=== PATIENT | male | born 1955 | race Hispanic/Latino ===

== ENCOUNTER 2018-06-11 20:15 | Emergency (ER) | payer OTHER ==
[~2018-06-11] VITALS: Ht 167.6 cm; Wt 67.1 kg
[~2018-06-11 20:15] MED LIST: MOBIC15 M1 PO
[2018-06-11 20:57] LABS: ABSOLUTE BASOPHIL COUNT 0.1 /CUMM (0.0-0.2); ABSOLUTE EOSINOPHIL COUNT 0.1 /CUMM (0.0-0.7); ABSOLUTE GRANULOCYTE CT 7.2 /CUMM (1.4-6.5); ABSOLUTE LYMPH COUNT 2.3 /CUMM (1.2-3.4); ABSOLUTE MONOCYTE COUNT 1.1 /CUMM (0.10-0.60); BASOPHIL % 0.6 % (0.0-2.0); EOSINOPHIL % 0.6 % (0-5); HEMATOCRIT 45.7 % (42-52); MEAN CORPUSCULAR HGB 35.7 PG (27.0-31.0); MEAN CORPUSCULAR HGB CONC 34.7 G/DL (33.0-37.0); MEAN PLATELET VOLUME 8.7 FL (7.4-10.4); PLATELET COUNT 184 /CUMM (130-400); RED BLOOD CELL CT 4.44 /CUMM (4.70-6.10); WHITE BLOOD CELL COUNT 10.7 /CUMM (4.8-10.8)
--- NOTE | 2018-06-11 21:06 | ED GI/GU/ABDOMINAL COMPLAINT ---
History of Present Illness General Chief Complaint: Abdominal Pain/Flank Pain Stated Complaint: PER ,"REALLY SICK STOMACH GOT BIG" Vital Signs & Intake/Output Vital Signs & Intake/Output Vital Signs Date Time Temp Pulse Resp B/P B/P Pulse O2 O2 Flow FiO2 Mean Ox Delivery Rate 06/11 2038 98.0 128 16 168/108 98 Room Air Allergies Coded Allergies: No Known Allergies (09/05/16) Reconcile Medications Meloxicam (Mobic) 15 MG TABLET 1 TAB PO DAILY PRN PAIN Triage Note: 63M WITH A FEW DAYS OF ABDOMINAL DISTENTION AND TODAY DEVELOPED DIARRHEA. +FLATULENCE, DENIES ABD SURGERY HX. AFEBRILE. DENIES CP/SOB/PALP. BP HIGH AND TACHY IN TRIAGE. DOES NOT TAKE MEDS FOR HTN Past History Travel History Traveled to [place] past 21 day No Psychosocial History What is your primary language Palestinian Tobacco Use: Never used Progress Plan of Care: Orders Procedure Date/time Status TROPONIN LEVEL 06/11 2016 Active LIPASE 06/11 2016 Active HEPATIC FUNCTION PANEL 06/11 2016 Active CBC WITHOUT DIFFERENTIAL 06/11 2016 Complete BASIC METABOLIC PANEL 06/11 2016 Active AMYLASE 06/11 2016 Active EKG 06/11 2016 Active Laboratory Tests 06/11/18 2044: Anion Gap 19 H, Estimated GFR > 60, BUN/Creatinine Ratio 8.8, Glucose 168 H, Calcium 8.5, Total Bilirubin 2.4 H, Direct Bilirubin 1.4 H, AST 159 H, ALT 50 , Alkaline Phosphatase 247 H, Troponin I Pending, Total Protein 7.5, Albumin 3.7, Amylase 65, Lipase 106, CBC w Diff NO MAN DIFF REQ, RBC 4.44 L, MCV 103.0 H, MCH 35.7 H, MCHC 34.7, RDW 13.0, MPV 8.7, Gran % 67.0, Lymphocytes % 21.1, Monocytes % 10.7 H, Eosinophils % 0.6, Basophils % 0.6, Absolute Granulocytes 7.2 H, Absolute Lymphocytes 2.3, Absolute Monocytes 1.1 H, Absolute Eosinophils 0.1, Absolute Basophils 0.1 Departure Departure Condition: Stable Referrals: Skip WALLACE,Dakota Rowe (PCP/Family) Departure Forms: Customer Survey General Discharge Information
--- NOTE | 2018-06-11 21:19 | ED GI/GU/ABDOMINAL COMPLAINT ---
See Addendum History of Present Illness General Chief Complaint: Abdominal Pain/Flank Pain Stated Complaint: PER ,"REALLY SICK STOMACH GOT BIG" Source: patient Exam Limitations: no limitations Vital Signs & Intake/Output Vital Signs & Intake/Output Vital Signs Date Time Temp Pulse Resp B/P B/P Pulse O2 O2 Flow FiO2 Mean Ox Delivery Rate 06/11 2307 98.1 125 18 150/82 95 Room Air 06/11 2038 98.0 128 16 168/108 98 Room Air ED Intake and Output 06/12 0000 06/11 1200 Intake Total 0 Output Total Balance 0 Intake, Oral 0 Patient 148 lb Weight Allergies Coded Allergies: No Known Allergies (09/05/16) Reconcile Medications Meloxicam (Mobic) 15 MG TABLET 1 TAB PO DAILY PRN PAIN Triage Note: 63M WITH A FEW DAYS OF ABDOMINAL DISTENTION AND TODAY DEVELOPED DIARRHEA. +FLATULENCE, DENIES ABD SURGERY HX. AFEBRILE. DENIES CP/SOB/PALP. BP HIGH AND TACHY IN TRIAGE. DOES NOT TAKE MEDS FOR HTN Triage Nurses Notes Reviewed? yes Duration: constant Timing: recent history Severity Numbers: 5 Location: generalized abdomen Radiation: no radiation HPI: Patient is a 63-year-old male with a past medical history of alcohol dependency who presents emergency room with a 3 day history of generalized abdominal distention decreased by mouth intake Patient can tolerate by mouth with no nausea or vomiting Patient had loose watery diarrhea production today Patient denies any fever chills chest pain shortness breath back pain dysuria hematuria No blood no melena noted from bowel production Denies any abdominal pain patient is able to pass gas Last alcohol beverage was this morning 2 shots (David Sanchez) Past History Travel History Traveled to [place] past 21 day No Medical History Any Pertinent Medical History? see below for history Psychiatric: alcohol dependence Surgical History Surgical History: non-contributory Psychosocial History What is your primary language Mongolian Tobacco Use: Never used Family History Hx Contributory? No (David Sanchez) Review of Systems Review of Systems Constitutional: Reports: no symptoms. EENTM: Reports: no symptoms. Respiratory: Reports: no symptoms. Cardiovascular: Reports: no symptoms. GI: Reports: see HPI, bloating. Genitourinary: Reports: no symptoms. Musculoskeletal: Reports: no symptoms. Skin: Reports: no symptoms. Neurological/Psychological: Reports: no symptoms. Hematologic/Endocrine: Reports: no symptoms. Immunologic/Allergic: Reports: no symptoms. All Other Systems: Reviewed and Negative (David Sanchez) Physical Exam Physical Exam General Appearance: no apparent distress, alert, awake, comfortable Head: atraumatic Eyes: Bilateral: normal appearance. Ears, Nose, Throat, Mouth: moist mucous membrane Neck: normal inspection Respiratory: no respiratory distress Cardiovascular: regular rate/rhythm Gastrointestinal: normal bowel sounds, non-tender, distention Extremities: normal range of motion Neurologic/Psych: no motor/sensory deficits, awake, alert Skin: intact, normal color, warm/dry Core Measures ACS in differential dx? No Sepsis Present: No Sepsis Focused Exam Completed? No (David Sanchez) Progress Differential Diagnosis: AAA, AMI, appendicitis, biliary colic, bowel obstruction , colon cancer, cholecystitis, diverticulitis, epididymitis, esophageal varices, gastritis, hepatitis, hernia, hemorrhoids, ischemic bowel, inflamm bowel dis, orchitis, pancreatitis, prostatitis, peptic ulcer, PUD/GERD, perforated viscous, pyelonephritis, SBO, STD, testicular torsion, ureterolithiasis, urinary retention, urethritis, UTI/pyelo Plan of Care: Orders Procedure Date/time Status Add-on Test (ER Only) 06/11 2125 Active PARTIAL THROMBOPLASTIN TIME 06/11 2044 Complete PROTHROMBIN TIME 06/11 2044 Complete ETHANOL 06/11 2044 Complete TROPONIN LEVEL 06/11 2016 Complete LIPASE 06/11 2016 Complete HEPATIC FUNCTION PANEL 06/11 2016 Complete CBC WITHOUT DIFFERENTIAL 06/11 2016 Complete BASIC METABOLIC PANEL 06/11 2016 Complete AMYLASE 06/11 2016 Complete EKG 06/11 2016 Active Laboratory Tests 06/11/18 2044: Anion Gap 19 H, Estimated GFR > 60, BUN/Creatinine Ratio 8.8, Glucose 168 H, Calcium 8.5, Total Bilirubin 2.4 H, Direct Bilirubin 1.4 H, AST 159 H, ALT 50 , Alkaline Phosphatase 247 H, Troponin I < 0.01, Total Protein 7.5, Albumin 3.7 , Amylase 65, Lipase 106, PT 13.9 H, INR 1.27 H, APTT 35, CBC w Diff NO MAN DIFF REQ, RBC 4.44 L, MCV 103.0 H, MCH 35.7 H, MCHC 34.7, RDW 13.0, MPV 8.7, Gran % 67.0, Lymphocytes % 21.1, Monocytes % 10.7 H, Eosinophils % 0.6, Basophils % 0.6, Absolute Granulocytes 7.2 H, Absolute Lymphocytes 2.3, Absolute Monocytes 1.1 H, Absolute Eosinophils 0.1, Absolute Basophils 0.1, Serum Alcohol 218.0 Patient on initial presentation is noted to be resting comfortably bedside in which she has no abdominal tenderness on exam mild distention is noted The insisted patient to receive CAT scan Patient is noted to be intoxicated and has alcohol dependency history he was offered alcohol detox evaluation however he declines Patient does present with and which I had a long extensive conversation with the patient and in which he was offered alcohol detox on multiple occasions and declines patient was aware of the risk to continue drinking alcohol as he has concerns of ascites cirrhosis portal hypertension and esophageal varices on the CT scan. I Strongly advised patient to discontinue the use of ALCOHOL as his medical condition may deteriorate He was advised to follow-up with gastroenterology and limits or discontinue the use of alcohol and to return to the emergency room if symptoms worsen then they will comply. Diagnostic Imaging: Viewed by Me: CT Scan. Radiology Impression: SEE COMMENTS Initial ED EKG: none Comments: PATIENT: SARBJIT CHICAS PRESENT AGE: 63 PATIENT ACCOUNT NO: [id number] : 54 LOCATION: [facility] ORDERING PHYSICIAN: David FISHER SERVICE DATE: 06/11/18 EXAM TYPE: CAT - CT ABD & PELVIS W IV CONTRAST EXAMINATION: CT ABDOMEN AND PELVIS WITH CONTRAST CLINICAL INFORMATION: Abdominal distention. COMPARISON: None. TECHNIQUE: Contiguous axial thin section helical images of the abdomen and pelvis were performed following the administration of 95 mL of intravenous Optiray 320. The data set was reformatted in the coronal and sagittal planes and reviewed on an independent workstation. DLP: 325 mGy-cm. FINDINGS: There is mild dependent bibasilar atelectasis. The visualized lung bases are otherwise clear. The visualized portions of the heart are unremarkable. There is a small hiatal hernia. There are upper abdominal varices present. The liver is of normal size and diffuse decreased attenuation without focal lesions nor intrahepatic biliary ductal dilation. A normal gallbladder is identified. There is no wall thickening or discernible pericholecystic fluid. The spleen, pancreas, adrenal glands are unremarkable. Both kidneys are of normal size and attenuation without hydronephrosis or nephrolithiasis. Following the administration of IV contrast, prompt symmetric nephrograms are displayed. There is a moderate amount of free fluid throughout the abdomen, particularly within the upper abdomen and within the left midabdomen and lower quadrant. There is neither mesenteric nor retroperitoneal lymphadenopathy. There is sigmoid diverticulosis without evidence of diverticulitis; otherwise, unremarkable unopacified loops of small and large bowel are identified. There is a small amount of pelvic free fluid. The urinary bladder is unremarkable. There is neither pelvic nor inguinal lymphadenopathy. There is a fat-containing left inguinal hernia. Bone windows: Neither sclerotic nor lytic bone lesions are identified. IMPRESSION: Moderate amount of abdominal and pelvic free fluid. The liver is of diffuse decreased attenuation without focal mass lesions. There are upper abdominal varices. The appearance is suggestive of cirrhosis and portal hypertension. Small hiatal hernia. Sigmoid diverticulosis without evidence of diverticulitis. DICTATED BY: Lester Abbott MD DATE/TIME DICTATED:06/11/182237 SENIOR TECHNICAL TRAINER:JOEY DATE/TIME TRANSCRIBED:06/11/182237 (David Sanchez) Departure Departure Disposition: HOME OR SELF CARE Condition: Stable Clinical Impression Primary Impression: Alcohol dependence Secondary Impressions: Alcoholic hepatitis, Cirrhosis, Esophageal varices, Portal hypertension Referrals: Skip WALLACE,Dakota Rowe (PCP/Family) Additional Instructions: As discussed please discontinue the use of alcohol, begin the prescription of Librium, prescription waiting a [facility]. This week please follow-up with GI DOCTOR, Dr. Li. If symptoms worsen or if you develop any new concerning symptom return to emergency room. Departure Forms: Customer Survey General Discharge Information (David Sanchez) PA/NEWSCAST DIRECTOR Co-Sign Statement Statement: ED Attending supervision documentation- [x] I have reviewed the ED Record and agree with the PA's/NEWSCAST DIRECTOR's documentation. (Radha WALLACE,Yao Canales)
[2018-06-11 21:58] LABS: PT 13.9 SEC (9.4-12.5); PTT 35 SEC (25-37)
--- NOTE | 2018-06-11 22:47 | CT SCAN REPORT ---
EXAMINATION: CT ABDOMEN AND PELVIS WITH CONTRAST CLINICAL INFORMATION: Abdominal distention. COMPARISON: None. TECHNIQUE: Contiguous axial thin section helical images of the abdomen and pelvis were performed following the administration of 95 mL of intravenous Optiray 320. The data set was reformatted in the coronal and sagittal planes and reviewed on an independent workstation. DLP: 325 mGy-cm. FINDINGS: There is mild dependent bibasilar atelectasis. The visualized lung bases are otherwise clear. The visualized portions of the heart are unremarkable. There is a small hiatal hernia. There are upper abdominal varices present. The liver is of normal size and diffuse decreased attenuation without focal lesions nor intrahepatic biliary ductal dilation. A normal gallbladder is identified. There is no wall thickening or discernible pericholecystic fluid. The spleen, pancreas, adrenal glands are unremarkable. Both kidneys are of normal size and attenuation without hydronephrosis or nephrolithiasis. Following the administration of IV contrast, prompt symmetric nephrograms are displayed. There is a moderate amount of free fluid throughout the abdomen, particularly within the upper abdomen and within the left midabdomen and lower quadrant. There is neither mesenteric nor retroperitoneal lymphadenopathy. There is sigmoid diverticulosis without evidence of diverticulitis; otherwise, unremarkable unopacified loops of small and large bowel are identified. There is a small amount of pelvic free fluid. The urinary bladder is unremarkable. There is neither pelvic nor inguinal lymphadenopathy. There is a fat-containing left inguinal hernia. Bone windows: Neither sclerotic nor lytic bone lesions are identified. IMPRESSION: Moderate amount of abdominal and pelvic free fluid. The liver is of diffuse decreased attenuation without focal mass lesions. There are upper abdominal varices. The appearance is suggestive of cirrhosis and portal hypertension. Small hiatal hernia. Sigmoid diverticulosis without evidence of diverticulitis.
[2018-06-11 23:07] VITALS: BP 150/82
[2018-06-12] MEDS ORDERED: CHLORDIAZEPOXID25 M3 PO (09:06)
== END 2018-06-11 23:32 ==
LOC: ERH 20:15
PROVIDERS: Pediatrics
DX: F10.20 Alcohol dependence, uncomplicated (principal); K70.10 Alcoholic hepatitis without ascites; K74.60 Unspecified cirrhosis of liver; I85.00 Esophageal varices without bleeding
CPT/HCPCS: 74177; 93005; 93010; G0480